=== PATIENT | female | born 1940 | race Caucasian/White ===

== ENCOUNTER 2016-11-03 14:47 | Emergency (ER) | payer MEDICARE, BC ==
[2007-01-18 07:14] VITALS: BP 125/79
[~2016-11-03] VITALS: Ht 160 cm; Wt 74.5 kg
[~2016-11-03 14:47] MED LIST: 00186-0370-20 IH; ADVIL200 MG PO; AMBIEN 10MG10 M1 PO; AMBIEN 10MG10 MG PO; AMBIEN10 MG PO; ARICEPT 5MG PO; ASPIRIN 32325 MG/TAB PO; ASPIRIN 81M81 MG/TA2 PO; ASPIRIN E.C. 8181 MG PO; ATIVAN 0.50.5 MG/TAB PO; B-1100 MG PO; BROMOCRIPTINE2.5 MG PO; BYSTOLIC10 MG PO; BYSTOLIC5 MG PO; CALCIUM 1200 W/1 SGL PO; CALCIUM 6001 TA1 PO; CALTRATE 600 +1 TAB PO; CELEXA10 MG PO; CENTRUM SILVER1 TA1 PO; COLESTID 1GM1 G PO; COLON HEALTH; COLON HERBAL CL1 CAP PO; COMPLETE SENIOR1 TA1 PO; CORTEF 10MG TAB10 MG PO; CORTEF 20MG TAB20 MG PO; CORTEF5 MG PO; CYMBALTA 30MG30 MG PO; CYMBALTA30 MG PO; DAILY VITAMIN1 TAB PO; DESYREL 100MG100 MG PO; DESYREL 50MG50 MG PO; DIOVAN HCT 25 M1 TAB PO; DIOVAN160 M1 PO; DOXYCYCLINE 10100 MG PO; DUO-KAPS1 CAP PO; ENTOCORT EC3 MG PO; EPA/GLA1 SGL PO; FEROSUL325 MG PO; FLEXERIL 1010 MG/TAB PO; FLEXERIL10 MG PO; FLEXERIL5 MG PO; FLORAJEN BIFIDO1 CAP PO; FLORINEF ACETA0.1 MG PO; FLOVENT 220MCG7.9 GM IH; FOLIC ACID 11 MG/TA1 PO; HYDROCORTISONE10 MG PO; HYDROCORTISONE20 MG PO; IMODIUM 2MG CAPS2 MG PO; IMODIUM A-D2 MG PO; INDERAL LA 80MG80 MG PO; INDERAL80 MG PO; IRON324 MG PO; K-DUR 2020 MEQ PO; KLONOPIN 0.5MG0.5 MG PO; LAMICTAL PO; LAMICTAL150 MG PO; LAMICTAL25 MG PO; LASIX20 MG PO; LEVOTHYROXIN0.112 MG PO; LEVOTHYROXIN0.125 MG PO; LIDOCAINE HC20 MG/M1 MM; LOVENOX 4040 MG/0.4 SQ; MIRALAX PA17 GM/Dose PO; MOTRIN600 MG PO; MS CONTIN 330 MG/TAB PO; MULTI VITAMINS1 TAB PO; MULTIVITAMIN FO1 CAP PO; NAMENDA 10MG TA10 MG PO; NAPROSYN250 MG PO; NATURE'S BLEN1000 MG; NEURONTIN300 MG/CAP PO; NORCO 325 MG-51 TAB PO; NORCO 325 MG-7.1 TAB PO; NORVASC 10MG10 MG PO; OMEGA 31000 MG PO; OXYCODONE CR10 MG PO; PERCOCET 325 MG1 TA2 PO; PLAVIX 75MG TAB75 MG PO; POTASSIUM20 MEQ PO; PREDNISONE 5MG5 MG PO; PRILOSEC 20MG20 MG PO; PRISTIQ 50 MG T50 MG PO; PROAIR HFA0.09 MG/AC IH; PROZAC 20MG20 MG PO; PROZAC40 MG PO; QUALITY CHOICE600 M1 PO; REQUIP0.25 MG PO; REQUIP0.5 MG PO; RISPERDAL1 MG PO; RITALIN10 MG PO; RT ADVAIR HFA 2312 G IH; SENOKOT8.6 MG PO; SEROQUEL 1100 MG/TAB PO; SEROQUEL25 MG PO; SERTRALINE100 MG PO; SYNTHROID 0.0.025 MG PO; SYNTHROID0.1 MG/TAB PO; SYNTHROID0.112 MG/T PO; SYNTHROID0.125 MG PO; TEARS-ARTIFICIA15 ML OP; THERA TEARS; TIROSINT100 MCG PO; TIROSINT112 MCG PO; TUDORZA IH; TYLENOL 325MG325 MG PO; ULTRAM 50MG TAB50 MG PO; VICODIN 5/5001 UDTAB PO; VITAMIN D 1001000 IU PO; VITAMIN D31000 I1 PO; WELLBUTRIN SR150 M1 PO; WELLBUTRIN XL150 MG PO; XANAX0.25 MG PO; ZESTRIL40 MG PO; ZITHROMAX 250M250 MG PO; ZITHROMAX Z PA250 MG PO; ZOCOR 20MG20 MG PO; ZOCOR 40MG40 MG PO; ZOCOR20 MG PO; ZOCOR40 MG PO; [UNRECOGNIZED DRUG - CODE] PO
[2016-11-03 14:50] VITALS: TEMP 97.6
[2016-11-03] MEDS ORDERED: IBU600 MG PO (15:40)
[2016-11-03] MEDS ORDERED: NORCO 325 MG-51 TAB PO (16:01)
[2016-11-03 16:20] VITALS: BP 120/68; PULSE 71
[2016-11-03] MEDS ORDERED: LYRICA 50MG CAP50 MG PO (16:44)
[2016-11-03] MEDS ORDERED: CALCIUM WITH D31 CTB PO (16:44)
[2016-11-03] MEDS ORDERED: GOOD NEIGH1200 MG/15 PO (16:46)
[2016-11-03] MEDS ORDERED: SYSTANE 0.4%-0.1 SOL OP (16:46)
== END 2016-11-03 16:19 | disposition home or self-care (01) ==
LOC: COL.ER 14:47
DX: M75.02 Adhesive capsulitis of left shoulder (principal)

== ENCOUNTER 2016-12-29 13:44 | Outpatient (RCR) | payer MEDICARE, BC ==
[2007-01-18 07:14] VITALS: BP 125/79
[~2016-12-29] VITALS: Ht 160 cm; Wt 85.0 kg
[~2016-12-29 13:44] MED LIST changes: +CALCIUM WITH D31 CTB PO; +GOOD NEIGH1200 MG/15 PO; +IBU600 MG PO; +LYRICA 50MG CAP50 MG PO; +SYSTANE 0.4%-0.1 SOL OP
[2016-12-29 13:58] VITALS: BP 133/63; PULSE 77; TEMP 98.2
[2016-12-29] MEDS ORDERED: ALMACONE 360 M360 ML PO (14:34)
[2016-12-29] MEDS ORDERED: GENTLE LAXATIVE10 MG RC (14:35)
[2016-12-29] MEDS ORDERED: TYLENOL 325MG325 MG PO (14:39)
[2016-12-29] MEDS ORDERED: LYRICA 50MG CAP50 MG PO (14:55)
[2016-12-29] MEDS ORDERED: SYNTHROID0.088 MG/T PO (15:02)
== END 2016-12-29 15:05 | disposition home or self-care (01) ==
LOC: EUO 13:44
DX: M81.0 Age-related osteoporosis without current pathological fracture (principal)
CPT/HCPCS: J0897

== ENCOUNTER → 2017-01-05 | Outpatient (CLI) | payer MEDICARE, BC ==
[~2017-01-05] MED LIST changes: +ALMACONE 360 M360 ML PO; +GENTLE LAXATIVE10 MG RC; +SYNTHROID0.088 MG/T PO
== END ==
LOC: COL.VAS 12:57
DX: I25.10 Atherosclerotic heart disease of native coronary artery without angina pectoris (principal); I08.1 Rheumatic disorders of both mitral and tricuspid valves

== ENCOUNTER 2017-07-06 14:56 | Inpatient (IN) | payer MEDICARE, BC ==
[~2017-07-06] VITALS: Ht 162.6 cm; Wt 82.7 kg
[~2017-07-06 14:56] MED LIST changes: -EPA/GLA1 SGL PO; +FISH OIL 1000MG1 CAP PO
[2017-07-06 16:08] LABS: BASO % 0.4 % (0.0-2.0); EOS # 0.1 (0.0-0.7); EOS % 0.8 % (0-4.0); GRAN # 7.3 (1.4-6.5); GRAN % 80.5 % (42.2-75.2); LYMPH # 0.6 (1.2-3.4); LYMPH % 6.8 % (20.0-51.0); MEAN CELL VOLUME 91 fl (80.0-100.0); MEAN CORPUSCULAR HEMOGLOBIN 30 pg (27.0-31.0); MEAN CORPUSCULAR HGB CONC 33 g/dl (33.0-37.0); MEAN PLATELET VOLUME 11.8 fl (7.4-10.4); MONO % 10.9 % (1.7-9.3); PLATELET COUNT 181 K/mm3 (130-400); RED BLOOD COUNT 4.41 M/mm3 (4.10-5.30); REDCELL DISTRIBUTION WIDTH-CV 14.6 % (11.5-14.5)
[2017-07-06 16:30] LABS: COLLECTION METHOD CLEAN CATCH
[2017-07-06 16:38] LABS: ALBUMIN 4.1 gm/dL (3.5-5.0); BILIRUBIN,TOTAL 0.3 mg/dL (0.0-1.0); CALCIUM 8.9 mg/dL (8.4-10.2); CREATININE, serum 1.23 mg/dL (0.52-1.25); POTASSIUM 4.2 mmol/L (3.4-5.0); TOTAL PROTEIN 6.7 gm/dL (6.4-8.2)
[2017-07-06 16:39] LABS: PH 8 (5-8); SQUAMOUS EPITHELIAL None Seen /hpf; URINE APPEARANCE Clear; URINE BACTERIA None Seen /hpf; URINE BILIRUBIN Negative (NEGATIVE); URINE BLOOD 2+ (NEGATIVE); URINE COLOR Yellow; URINE GLUCOSE Negative (NEGATIVE); URINE KETONE Negative (NEGATIVE); URINE LEUKOCYTE ESTERASE Negative (NEGATIVE); URINE NITRATE Negative (NEGATIVE); URINE PROTEIN(semi-quant) Negative (NEGATIVE); URINE RBC 0-2 /hpf; URINE UROBILINOGEN Negative (NEGATIVE)
[2017-07-06 17:08] LABS: TSH w REFLEX 0.71 uIU/mL (0.465-4.680)
[2017-07-06] MEDS ORDERED: ARICEPT10 MG PO (17:23)
[2017-07-06] MEDS ORDERED: WELLBUTRIN XL150 MG PO (17:25)
[2017-07-06] MEDS ORDERED: CRANBERRY500 M3 PO (17:27)
[2017-07-06] MEDS ORDERED: CYMBALTA 60MG60 MG PO (17:27)
[2017-07-06] MEDS ORDERED: FLORAJEN A20 Billion (17:28)
[2017-07-06] MEDS ORDERED: NORCO 325 MG-51 TAB PO (17:30)
[2017-07-06] MEDS ORDERED: CORTEF5 MG PO (17:31)
[2017-07-06] MEDS ORDERED: CORTEF 20MG TAB20 MG PO (17:31)
[2017-07-06] MEDS ORDERED: SYNTHROID0.088 MG/T PO (17:36)
[2017-07-06] MEDS ORDERED: LYRICA 100MG C100 M1 PO ×2 (17:38→22:03)
[2017-07-06] MEDS ORDERED: SYSTANE 0.4%-0.1 SOL OP (17:39)
[2017-07-06] MEDS ORDERED: AMOXICILLIN 50500 MG PO (17:45)
[2017-07-06] MEDS ORDERED: NYAMYC100000 U/G TP (17:47)
[2017-07-06 20:46] VITALS: BP 96/75; PULSE 87; TEMP 99.4
[2017-07-06] MEDS ORDERED: VITAMIN D3400 I1 PO (22:17)
[2017-07-07] VITALS (7 sets, daily range): BP systolic 97–193; BP diastolic 45–85; PULSE 75–95; TEMP 98.6–99.9
[2017-07-07 06:13] LABS: BASO % 0.5 % (0.0-2.0); EOS % 0.8 % (0-4.0); GRAN # 2.3 (1.4-6.5); GRAN % 58.4 % (42.2-75.2); LYMPH # 0.9 (1.2-3.4); LYMPH % 23.6 % (20.0-51.0); MEAN CELL VOLUME 90 fl (80.0-100.0); MEAN CORPUSCULAR HGB CONC 33 g/dl (33.0-37.0); MONO # 0.6 (0.1-0.6); MONO % 16.4 % (1.7-9.3); PLATELET COUNT 137 K/mm3 (130-400); RED BLOOD COUNT 3.81 M/mm3 (4.10-5.30); REDCELL DISTRIBUTION WIDTH-CV 14.7 % (11.5-14.5)
[2017-07-07 06:18] LABS: HEMATOCRIT 34.4 % (37.0-47.0); HEMOGLOBIN 11.2 g/dl (12.5-16.0); MEAN CORPUSCULAR HEMOGLOBIN 29 pg (27.0-31.0)
[2017-07-07 06:26] LABS: CALCIUM 7.8 mg/dL (8.4-10.2); CREATININE, serum 1.06 mg/dL (0.52-1.25); POTASSIUM 3.5 mmol/L (3.4-5.0)
[2017-07-08 00:04] VITALS: BP 126/48; PULSE 79; TEMP 101.3; TEMP 98.5
[2017-07-08 05:05] VITALS: BP 155/61; PULSE 84; TEMP 99.8
[2017-07-08 06:35] LABS: MEAN CELL VOLUME 91 fl (80.0-100.0); MEAN CORPUSCULAR HGB CONC 33 g/dl (33.0-37.0); MEAN PLATELET VOLUME 11.6 fl (7.4-10.4); PLATELET COUNT 126 K/mm3 (130-400); RED BLOOD COUNT 3.77 M/mm3 (4.10-5.30); REDCELL DISTRIBUTION WIDTH-CV 14.8 % (11.5-14.5)
[2017-07-08 06:54] LABS: CALCIUM 7.2 mg/dL (8.4-10.2); CREATININE, serum 1.39 mg/dL (0.52-1.25); POTASSIUM 3.8 mmol/L (3.4-5.0)
[2017-07-08 07:10] LABS: HEMATOCRIT 34.3 % (37.0-47.0); HEMOGLOBIN 11.2 g/dl (12.5-16.0); MEAN CORPUSCULAR HEMOGLOBIN 30 pg (27.0-31.0)
[2017-07-08 07:49] VITALS: BP 123/52; PULSE 64; TEMP 99
[2017-07-08 08:27] LABS: BAND 3 % (0-10); EOSINOPHIL 1 % (0-4); LYMPHOCYTE 37 % (20.0-51.0); NEUTROPHILS 46 % (42.0-75.2); PLATELET ESTIMATE NORMAL (NORMAL)
[2017-07-08 08:29] LABS: ANISOCYTOSIS 1+
[2017-07-08 11:25] VITALS: BP 107/49; PULSE 69; TEMP 97.6
[2017-07-08 15:42] VITALS: BP 110/42; PULSE 77; TEMP 98.4
[2017-07-08 20:39] VITALS: BP 94/40; PULSE 69; TEMP 98.1
[2017-07-09 00:27] VITALS: BP 150/57; PULSE 72; TEMP 98.1
[2017-07-09 05:41] VITALS: BP 173/69; PULSE 71; TEMP 98.1
[2017-07-09 06:43] LABS: BASO % 0.6 % (0.0-2.0); EOS # 0.1 (0.0-0.7); GRAN # 1.2 (1.4-6.5); LYMPH # 1.6 (1.2-3.4); LYMPH % 43.5 % (20.0-51.0); MEAN CELL VOLUME 90 fl (80.0-100.0); MEAN CORPUSCULAR HGB CONC 33 g/dl (33.0-37.0); MEAN PLATELET VOLUME 11.3 fl (7.4-10.4); MONO # 0.7 (0.1-0.6); MONO % 19.6 % (1.7-9.3); PLATELET COUNT 142 K/mm3 (130-400); RED BLOOD COUNT 3.84 M/mm3 (4.10-5.30); REDCELL DISTRIBUTION WIDTH-CV 14.6 % (11.5-14.5)
[2017-07-09 06:44] LABS: HEMATOCRIT 34.7 % (37.0-47.0); HEMOGLOBIN 11.3 g/dl (12.5-16.0); MEAN CORPUSCULAR HEMOGLOBIN 29 pg (27.0-31.0)
[2017-07-09 06:57] LABS: CALCIUM 7.6 mg/dL (8.4-10.2); CREATININE, serum 1.12 mg/dL (0.52-1.25); POTASSIUM 3.8 mmol/L (3.4-5.0)
[2017-07-09 07:05] VITALS: BP 139/64
[2017-07-09 07:58] VITALS: BP 138/55; PULSE 67; TEMP 97.8
[2017-07-09] MEDS ORDERED: COMBIRESP IH (10:20)
[2017-07-09] MEDS ORDERED: TAMIFLU 75MG75 MG PO (10:20)
[2017-07-09] MEDS ORDERED: MUCINEX 60600 MG/TA1 PO (10:21)
[2017-07-09] MEDS ORDERED: NORCO 325 MG-51 TAB PO (10:21)
[2017-07-09] MEDS ORDERED: CORTEF 20MG TAB20 MG PO (10:23)
[2017-07-09 11:37] VITALS: BP 133/60; PULSE 72; TEMP 98
== END 2017-07-09 13:43 | DRG 194 ==
LOC: COL.ER 14:56 → MEDICAL 19:12
PROVIDERS: Emergency Medicine; Nurse Practitioner; Physician Assistant
DX: J10.1 Influenza due to other identified influenza virus with other respiratory manifestations (principal); E27.40 Unspecified adrenocortical insufficiency; I10 Essential (primary) hypertension; F03.90 Unspecified dementia, unspecified severity, without behavioral disturbance, psychotic disturbance, mood disturbance, and anxiety; Z95.5 Presence of coronary angioplasty implant and graft; Z87.891 Personal history of nicotine dependence
CPT/HCPCS: 99222-AI; 99231-AI; 99239; J0360; J1650; J7040

== ENCOUNTER → 2017-07-20 | Outpatient (CLI) | payer MEDICARE, BC ==
[~2017-07-20] MED LIST changes: +AMOXICILLIN 50500 MG PO; +ARICEPT10 MG PO; +COMBIRESP IH; +CRANBERRY500 M3 PO; +CYMBALTA 60MG60 MG PO; +FLORAJEN A20 Billion; +LYRICA 100MG C100 M1 PO; +MUCINEX 60600 MG/TA1 PO; +NYAMYC100000 U/G TP; +TAMIFLU 75MG75 MG PO; +VITAMIN D3400 I1 PO
== END ==
LOC: COL.RAD 15:03
DX: J10.1 Influenza due to other identified influenza virus with other respiratory manifestations (principal); J98.4 Other disorders of lung

== ENCOUNTER → 2017-08-18 | Outpatient (REF) ==
[~2017-08-18] MED LIST changes: +MELATONIN5 M1 SL; +PROAMATINE 5MG T5 MG PO; +REQUIP 0.5MG0.5 MG PO; -REQUIP0.25 MG PO
== END ==
LOC: ZCOL.LAB 12:16
DX: D72.829 Elevated white blood cell count, unspecified (principal); M62.81 Muscle weakness (generalized)

== ENCOUNTER → 2017-08-18 | Outpatient (REF) | LOC: ZCOL.LAB 12:09 | DX: Z01.89 Encounter for other specified special examinations (principal) ==

== ENCOUNTER 2017-08-29 20:08 | Emergency (ER) | payer MEDICARE, BC ==
[2007-01-18 07:14] VITALS: BP 125/79
[~2017-08-29] VITALS: Ht 160 cm; Wt 68.2 kg
[~2017-08-29 20:08] MED LIST changes: +CRANBERRY FRUI405 MG PO; -CRANBERRY500 M3 PO
[2017-08-29 20:10] VITALS: TEMP 98.1
[2017-08-29] MEDS ORDERED: TYLENOL SU650 MG/SUP RC (20:32)
[2017-08-29] MEDS ORDERED: DULCOLAX S10 MG/SUPP RC (20:51)
[2017-08-29] MEDS ORDERED: ASPIRIN 81M81 MG/TA2 PO (20:51)
[2017-08-29] MEDS ORDERED: NORCO 325 MG-51 TAB PO (21:05)
[2017-08-29] MEDS ORDERED: IMODIUM 2MG CAPS2 MG PO (21:11)
[2017-08-29] MEDS ORDERED: MILK OF MA400 MG/52 (21:14)
[2017-08-29] MEDS ORDERED: ALUMINUM & MAG355 ML PO (21:35)
[2017-08-29] MEDS ORDERED: LYRICA 100MG C100 M1 PO (21:36)
[2017-08-29] MEDS ORDERED: TYLENOL 325MG325 MG PO (21:40)
[2017-08-29] MEDS ORDERED: SYSTANE 0.4%-0.1 SOL OP (21:40)
[2017-08-29 22:37] VITALS: BP 150/77; PULSE 81
== END 2017-08-29 22:41 ==
LOC: COL.ER 20:08
DX: S42.211A Unspecified displaced fracture of surgical neck of right humerus, initial encounter for closed fracture (principal); I10 Essential (primary) hypertension; F03.90 Unspecified dementia, unspecified severity, without behavioral disturbance, psychotic disturbance, mood disturbance, and anxiety; Z79.52 Long term (current) use of systemic steroids; Z79.82 Long term (current) use of aspirin; W19.XXXA Unspecified fall, initial encounter; Y92.129 Unspecified place in nursing home as the place of occurrence of the external cause

== ENCOUNTER → 2017-09-01 | Outpatient (REF) ==
[~2017-09-01] MED LIST changes: +ALUMINUM & MAG355 ML PO; +DULCOLAX S10 MG/SUPP RC; +MILK OF MA400 MG/52; +TYLENOL SU650 MG/SUP RC
[2017-09-01 09:21] LABS: COLLECTION METHOD CLEAN CATCH
[2017-09-01 09:52] LABS: PH 8 (5-8); SQUAMOUS EPITHELIAL None Seen /hpf; URINE APPEARANCE Clear; URINE BACTERIA None Seen /hpf; URINE BILIRUBIN Negative (NEGATIVE); URINE BLOOD Negative (NEGATIVE); URINE COLOR Straw; URINE GLUCOSE Negative (NEGATIVE); URINE KETONE Negative (NEGATIVE); URINE LEUKOCYTE ESTERASE Trace (NEGATIVE); URINE NITRATE Negative (NEGATIVE); URINE PROTEIN(semi-quant) Negative (NEGATIVE); URINE RBC 0-2 /hpf; URINE UROBILINOGEN Negative (NEGATIVE)
== END ==
LOC: ZCOL.LAB 09:20
PROVIDERS: Nurse Practitioner Family
DX: R26.2 Difficulty in walking, not elsewhere classified (principal)

== ENCOUNTER → 2017-10-20 | Outpatient (REF) ==
[2017-10-20 14:05] LABS: COLLECTION METHOD CATHETER
[2017-10-20 14:19] LABS: MUCOUS Present /lpf; PH 5 (5-8); SQUAMOUS EPITHELIAL 0-2 /hpf; URINE APPEARANCE Turbid; URINE BACTERIA None Seen /hpf; URINE BILIRUBIN Positive (NEGATIVE); URINE BLOOD Negative (NEGATIVE); URINE CALCIUM OXALATE CRYSTAL Present /hpf; URINE COLOR Amber; URINE GLUCOSE Negative (NEGATIVE); URINE KETONE Trace (NEGATIVE); URINE LEUKOCYTE ESTERASE 1+ (NEGATIVE); URINE NITRATE Negative (NEGATIVE); URINE PROTEIN(semi-quant) 1+ (NEGATIVE); URINE UROBILINOGEN Negative (NEGATIVE)
== END ==
LOC: ZCOL.LAB 14:04
PROVIDERS: Internal Medicine
DX: Z01.89 Encounter for other specified special examinations (principal)

== ENCOUNTER 2017-11-11 18:59 | Emergency (ER) | payer MEDICARE, BC ==
[2007-01-18 07:14] VITALS: BP 125/79
[~2017-11-11] VITALS: Ht 160 cm; Wt 76.4 kg
[~2017-11-11 18:59] MED LIST changes: -CRANBERRY FRUI405 MG PO; +CRANBERRY500 M3 PO; -FLORAJEN A20 Billion; +FLORAJEN A20 Billion PO
[2017-11-11 19:00] VITALS: BP 120/56; TEMP 98.7
[2017-11-11] MEDS ORDERED: IBU600 MG PO (19:25)
[2017-11-11] MEDS ORDERED: NAMENDA 10MG TA10 MG PO (19:29)
[2017-11-11] MEDS ORDERED: SYSTANE 0.4%-0.1 SOL OP (19:32)
[2017-11-11] MEDS ORDERED: AMOXICILLIN 50500 MG PO (19:33)
[2017-11-11] MEDS ORDERED: CALCIUM 600600 M2 PO (19:36)
[2017-11-11] MEDS ORDERED: NATURE'S BLEND1 T11 PO (19:37)
[2017-11-11 20:36] LABS: BASO % 0.4 % (0.0-2.0); EOS # 0.2 (0.0-0.7); EOS % 2.4 % (0-4.0); GRAN # 5.3 (1.4-6.5); GRAN % 56.3 % (42.2-75.2); HEMOGLOBIN 10.9 g/dl (12.5-16.0); LYMPH # 2.5 (1.2-3.4); MEAN CELL VOLUME 87 fl (80.0-100.0); MEAN CORPUSCULAR HEMOGLOBIN 28 pg (27.0-31.0); MEAN CORPUSCULAR HGB CONC 32 g/dl (33.0-37.0); MEAN PLATELET VOLUME 10.7 fl (7.4-10.4); MONO # 1.3 (0.1-0.6); MONO % 13.6 % (1.7-9.3); PLATELET COUNT 197 K/mm3 (130-400); RED BLOOD COUNT 3.87 M/mm3 (4.10-5.30); REDCELL DISTRIBUTION WIDTH-CV 15.1 % (11.5-14.5)
[2017-11-11 20:37] LABS: HEMATOCRIT 33.8 % (37.0-47.0)
[2017-11-11 20:45] LABS: ALBUMIN 3.6 gm/dL (3.5-5.0); BILIRUBIN,TOTAL 0.1 mg/dL (0.0-1.0); CALCIUM 9.4 mg/dL (8.4-10.2); CREATININE, serum 1.14 mg/dL (0.52-1.25); POTASSIUM 3.8 mmol/L (3.4-5.0); TOTAL PROTEIN 6.1 gm/dL (6.4-8.2)
[2017-11-11 22:10] VITALS: PULSE 82
== END 2017-11-11 23:22 | disposition home or self-care (01) ==
LOC: COL.ER 18:59
PROVIDERS: Emergency Medicine
DX: S09.90XA Unspecified injury of head, initial encounter (principal); S80.01XA Contusion of right knee, initial encounter; R26.89 Other abnormalities of gait and mobility; F03.90 Unspecified dementia, unspecified severity, without behavioral disturbance, psychotic disturbance, mood disturbance, and anxiety; I25.10 Atherosclerotic heart disease of native coronary artery without angina pectoris; Z79.82 Long term (current) use of aspirin; Z98.890 Other specified postprocedural states; W19.XXXA Unspecified fall, initial encounter; Y92.009 Unspecified place in unspecified non-institutional (private) residence as the place of occurrence of the external cause

== ENCOUNTER → 2017-11-12 | Outpatient (REF) ==
[~2017-11-12] MED LIST changes: +CALCIUM 600600 M2 PO; +NATURE'S BLEND1 T11 PO
[2017-11-12 18:49] LABS: BASO # 0.1 (0.0-0.2); BASO % 0.6 % (0.0-2.0); EOS # 0.3 (0.0-0.7); EOS % 3.1 % (0-4.0); GRAN # 4.3 (1.4-6.5); GRAN % 51.7 % (42.2-75.2); HEMOGLOBIN 11.4 g/dl (12.5-16.0); LYMPH # 2.8 (1.2-3.4); LYMPH % 33.5 % (20.0-51.0); MEAN CELL VOLUME 87 fl (80.0-100.0); MEAN CORPUSCULAR HEMOGLOBIN 28 pg (27.0-31.0); MEAN CORPUSCULAR HGB CONC 32 g/dl (33.0-37.0); MEAN PLATELET VOLUME 11.4 fl (7.4-10.4); MONO # 0.9 (0.1-0.6); MONO % 10.9 % (1.7-9.3); PLATELET COUNT 219 K/mm3 (130-400); RED BLOOD COUNT 4.06 M/mm3 (4.10-5.30); REDCELL DISTRIBUTION WIDTH-CV 15.1 % (11.5-14.5)
[2017-11-12 18:50] LABS: HEMATOCRIT 35.5 % (37.0-47.0)
[2017-11-12 19:09] LABS: BILIRUBIN,TOTAL 0.2 mg/dL (0.0-1.0); CALCIUM 10.1 mg/dL (8.4-10.2); CREATININE, serum 1.18 mg/dL (0.52-1.25); POTASSIUM 4.4 mmol/L (3.4-5.0); TOTAL PROTEIN 6.5 gm/dL (6.4-8.2)
== END ==
LOC: ZCOL.LAB 18:42
PROVIDERS: Internal Medicine
DX: Z01.89 Encounter for other specified special examinations (principal)

== ENCOUNTER → 2018-03-15 | Outpatient (CLI) | payer MEDICARE, BC ==
[2018-03-15 19:08] LABS: CALCIUM 9.3 mg/dL (8.4-10.2); CREATININE, serum 1.2 mg/dL (0.52-1.25); POTASSIUM 4.4 mmol/L (3.4-5.0)
== END ==
LOC: ZCOL.LAB 16:33
PROVIDERS: Internal Medicine
DX: E87.5 Hyperkalemia (principal)

== ENCOUNTER → 2018-06-26 | Outpatient (CLI) | payer MEDICARE, BC ==
[2018-06-26 16:40] LABS: COLLECTION METHOD CLEAN CATCH
[2018-06-26 17:01] LABS: MUCOUS Present /lpf; PH 5 (5-8); SQUAMOUS EPITHELIAL 0-2 /hpf; URINE APPEARANCE Clear; URINE BACTERIA Rare /hpf; URINE BILIRUBIN Negative (NEGATIVE); URINE BLOOD Negative (NEGATIVE); URINE COLOR Yellow; URINE GLUCOSE Negative (NEGATIVE); URINE KETONE Negative (NEGATIVE); URINE LEUKOCYTE ESTERASE Negative (NEGATIVE); URINE NITRATE Negative (NEGATIVE); URINE PROTEIN(semi-quant) Negative (NEGATIVE); URINE RBC 0-2 /hpf; URINE UROBILINOGEN Negative (NEGATIVE)
== END ==
LOC: ZCOL.LAB 16:05
PROVIDERS: Family Medicine
DX: Z01.89 Encounter for other specified special examinations (principal)

== ENCOUNTER 2018-07-27 11:36 | Outpatient (RCR) | payer MEDICARE, BC ==
[2007-01-18 07:14] VITALS: BP 125/79
[~2018-07-27] VITALS: Ht 160 cm; Wt 77.0 kg
[~2018-07-27 11:36] MED LIST changes: -COMPLETE SENIOR1 TA1 PO; +MULTIVITAMIN SEN PO
[2018-07-27 11:56] VITALS: BP 154/58; PULSE 70; TEMP 98.1
--- NOTE | 2018-07-27 12:45 | NUR ---
Pt dae shot well. Pt observed for 15 min and discharged per w/c by ep tech.
[2018-07-27] MEDS ORDERED: BIOTENE MOIST44.3 ML PO (14:15)
[2018-07-27] MEDS ORDERED: NORCO 325 MG-51 TAB PO (14:23)
[2018-07-27] MEDS ORDERED: PROLIA60 MG/ML SQ (14:30)
[2018-07-27] MEDS ORDERED: SINEMET 25/101 UDTAB PO (14:34)
== END 2018-07-27 14:38 | disposition home or self-care (01) ==
LOC: EUO 11:36
DX: M81.0 Age-related osteoporosis without current pathological fracture (principal); Z79.899 Other long term (current) drug therapy
CPT/HCPCS: J0897

== ENCOUNTER 2019-01-25 12:41 | Outpatient (CLI) | payer MEDICARE, BC ==
[2007-01-18 07:14] VITALS: BP 125/79
[~2019-01-25] VITALS: Ht 160 cm; Wt 74.7 kg
[~2019-01-25 12:41] MED LIST changes: +BIOTENE MOIST44.3 ML PO; +PROLIA60 MG/ML SQ; +SINEMET 25/101 UDTAB PO
[2019-01-25 13:14] VITALS: BP 117/53; PULSE 77; TEMP 98.2
== END 2019-01-25 15:33 | disposition home or self-care (01) ==
LOC: EUO 12:41
DX: M81.8 Other osteoporosis without current pathological fracture (principal)
CPT/HCPCS: J0897

== ENCOUNTER → 2019-10-15 | Outpatient (CLI) | payer MEDICARE, BC ==
[2019-10-15 15:03] LABS: BASO % 0.4 % (0.0-2.0); EOS % 0.3 % (0-4.0); GRAN # 9.1 (1.4-6.5); GRAN % 81.7 % (42.2-75.2); HEMOGLOBIN 10.9 g/dl (12.5-16.0); LYMPH # 1.2 (1.2-3.4); LYMPH % 10.5 % (20.0-51.0); MEAN CELL VOLUME 89 fl (80.0-100.0); MEAN CORPUSCULAR HEMOGLOBIN 28 pg (27.0-31.0); MEAN CORPUSCULAR HGB CONC 31 g/dl (33.0-37.0); MEAN PLATELET VOLUME 11.5 fl (7.4-10.4); MONO # 0.7 (0.1-0.6); MONO % 6.6 % (1.7-9.3); PLATELET COUNT 219 K/mm3 (130-400); RED BLOOD COUNT 3.94 M/mm3 (4.10-5.30); REDCELL DISTRIBUTION WIDTH-CV 14.3 % (11.5-14.5)
[2019-10-15 15:15] LABS: BILIRUBIN,TOTAL 0.3 mg/dL (0.0-1.0); CALCIUM 10.1 mg/dL (8.4-10.2); CREATININE, serum 1.44 (0.52-1.25); POTASSIUM 4.7 mmol/L (3.4-5.0); TOTAL PROTEIN 6.6 gm/dL (6.4-8.2)
[2019-10-15 15:18] LABS: HEMATOCRIT 35.2 % (37.0-47.0)
[2019-10-17 21:46] LABS: IRON,SERUM 28 ug/dL (35-150)
[2019-10-17 21:55] LABS: TOTAL IRON BINDING CAPACITY 277 ug/dL (265-497)
== END ==
LOC: ZCOL.LAB 13:51
PROVIDERS: Internal Medicine
DX: I95.1 Orthostatic hypotension (principal)

== ENCOUNTER → 2019-10-15 | Outpatient (CLI) | payer MEDICARE, BC ==
[2019-10-15 21:08] LABS: MUCOUS Present /lpf; PH 5 (5-8); SQUAMOUS EPITHELIAL 0-2 /hpf; URINE APPEARANCE Clear; URINE BACTERIA Rare /hpf; URINE BILIRUBIN Negative (NEGATIVE); URINE BLOOD Negative (NEGATIVE); URINE COLOR Yellow; URINE GLUCOSE Negative (NEGATIVE); URINE KETONE Trace (NEGATIVE); URINE LEUKOCYTE ESTERASE Trace (NEGATIVE); URINE NITRATE Negative (NEGATIVE); URINE PROTEIN(semi-quant) 1+ (NEGATIVE); URINE RBC 0-2 /hpf; URINE UROBILINOGEN Negative (NEGATIVE)
[2019-10-16 10:16] LABS: COLLECTION METHOD CLEAN CATCH
== END ==
LOC: ZCOL.LAB 20:24
PROVIDERS: Internal Medicine
DX: N39.0 Urinary tract infection, site not specified (principal)

== ENCOUNTER → 2019-11-22 | Outpatient (CLI) | payer MEDICARE, BC ==
[~2019-11-22] MED LIST changes: -CALCIUM 600600 M2 PO; +CALCIUM 600600 MG PO
== END ==
LOC: COL.RAD 13:02
DX: R41.89 Other symptoms and signs involving cognitive functions and awareness (principal); R90.82 White matter disease, unspecified

== ENCOUNTER 2020-05-30 05:20 | Emergency (ER) | payer MEDICARE, BC ==
[2007-01-18 07:14] VITALS: BP 125/79
[~2020-05-30] VITALS: Ht 175.3 cm; Wt 72.7 kg
[2020-05-30 05:21] VITALS: TEMP 98.4
[2020-05-30 07:34] VITALS: BP 183/96; PULSE 64
== END 2020-05-30 07:34 | disposition home or self-care (01) ==
LOC: COL.ER 05:20
DX: S00.03XA Contusion of scalp, initial encounter (principal); I10 Essential (primary) hypertension; J45.909 Unspecified asthma, uncomplicated; F03.90 Unspecified dementia, unspecified severity, without behavioral disturbance, psychotic disturbance, mood disturbance, and anxiety; E27.40 Unspecified adrenocortical insufficiency; Z88.8 Allergy status to other drugs, medicaments and biological substances; Z79.82 Long term (current) use of aspirin; W19.XXXA Unspecified fall, initial encounter

== ENCOUNTER → 2020-08-28 | Outpatient (CLI) | payer MEDICARE, BC | LOC: COL.RAD 12:15 | DX: I67.82 Cerebral ischemia (principal); G31.9 Degenerative disease of nervous system, unspecified; F03.90 Unspecified dementia, unspecified severity, without behavioral disturbance, psychotic disturbance, mood disturbance, and anxiety ==